=== PATIENT | male | born 1975 | race Caucasian/White ===

== ENCOUNTER 2016-08-13 13:13 | Emergency (ER) | payer SELFPAY ==
[~2016-08-13] VITALS: Ht 165.1 cm; Wt 59.0 kg
[2016-08-13] MEDS ORDERED: KETOROLAC 60MG/2ML VIAL IM ONE (22:30)
[2016-08-13] MEDS ORDERED: LORAZEPAM 1MG TABLET PO ONE (22:30)
[2016-08-13] MEDS ORDERED: DEXAMETHASONE 10MG/ML 1ML VIAL IM ONE (22:30)
[2016-08-13 22:41] VITALS: BP 112/75
== END 2016-08-13 23:11 | disposition home or self-care (01) ==
LOC: ER 18:51
DX: M54.30 Sciatica, unspecified side (principal); F17.210 Nicotine dependence, cigarettes, uncomplicated; F12.10 Cannabis abuse, uncomplicated
CPT/HCPCS: 96372; 99284; J1100; J1885; Z7610